=== PATIENT | male | born 1995 | race Caucasian/White ===

== ENCOUNTER 2019-05-31 14:20 | Emergency (ER) | payer SELFPAY ==
[~2019-05-31] VITALS: Ht 175.3 cm; Wt 78.9 kg
[2019-05-31 14:25] VITALS: Ht 175.3 cm; Wt 78.9 kg
[2019-05-31 15:00] VITALS: BP 124/71
== END 2019-05-31 15:00 | disposition home or self-care (01) ==
LOC: ED 14:20
DX: S61.231A Puncture wound without foreign body of left index finger without damage to nail, initial encounter (principal); X58.XXXA Exposure to other specified factors, initial encounter; Y93.89 Activity, other specified; Y92.89 Other specified places as the place of occurrence of the external cause; Y99.8 Other external cause status
CPT/HCPCS: 90715